=== PATIENT | male | born 1995 ===

== ENCOUNTER 2016-07-19 14:13 | Emergency (ER) | payer MEDICAID, OTHER, SELFPAY ==
[2016-07-19] MEDS ORDERED: Ketorolac Tromethamine 30 MG/ML VIAL ONE (14:25)
[2016-07-19] MEDS ORDERED: Adacel (T-DAP) 0.5 ML VIAL ONE (14:28)
[2016-07-19] MEDS ORDERED: Triple Antibiotic Oint 1 GM Packet ONE (15:32)
[2016-07-19] MEDS ORDERED: Sulfameth/Trimethoprim DS 800-160mg TAB ONE (15:42)
--- NOTE | 2016-07-19 18:36 | RAD ---
CHEST 2 VIEWS: Date: 07/19/16 The heart is normal in size. The mediastinum shows no widening or shift. The trachea is midline. The lungs are fully inflated and clear. No infiltrate, effusion, or pneumothorax seen. The bony structu res appeared intact. IMPRESSION: No acute findings. POS: HOME
--- NOTE | 2016-07-19 18:38 | RAD ---
LEFT ELBOW 4 VIEWS: Date: 07/19/16 No acute fracture or joint effusion seen. A small bony density is seen along the medial epicondyle o f the humerus that is probably ligamentous ossification from a prior injury. IMPRESSION: No acute bony finding. POS: HOME
--- NOTE | 2016-07-19 18:46 | RAD ---
LEFT WRIST 3 VIEWS: Date: 07/19/16 No fracture or carpal abnormality was appreciated. There is a vague density overlying the base of th e first metacarpal on the oblique view that is seen on no other view. This may be artifactual. IMPRESSION: No acute bony findings. POS: HOME
--- NOTE | 2016-07-19 18:47 | RAD ---
LEFT SHOULDER 3 VIEWS: Date: 07/19/16 No fracture was appreciated. All bones appeared intact. AC joint normal in width and no dislocation seen. The visible adjacent ribs are clear. The left upper lobe is clear. IMPRESSION: No acute findings. POS: HOME
--- NOTE | 2016-07-19 18:47 | RAD ---
LEFT HIP 2 VIEWS: Date: 07/19/16 No fracture, dislocation, or joint space narrowing seen. The articular surface of the femoral head i s smooth and the adjacent pubic ring appears intact. IMPRESSION: No acute findings. POS: HOME
--- NOTE | 2016-07-19 18:48 | RAD ---
LEFT KNEE 4 VIEWS: Date: 07/19/16 No fracture, dislocation, or joint effusion seen. The joint space appears normal. IMPRESSION: No acute findings. POS: HOME
== END 2016-07-19 15:56 | disposition home or self-care (01) ==
LOC: BURERS 14:13
DX: S61.412A Laceration without foreign body of left hand, initial encounter (principal); S51.012A Laceration without foreign body of left elbow, initial encounter; S70.02XA Contusion of left hip, initial encounter; S40.212A Abrasion of left shoulder, initial encounter; S80.212A Abrasion, left knee, initial encounter; Z23 Encounter for immunization; V86.99XA Unspecified occupant of other special all-terrain or other off-road motor vehicle injured in nontraffic accident, initial encounter
CPT/HCPCS: 12013; 71020; 90471; 90715; 96374; J1885